=== PATIENT | female | born 1940 | race Caucasian/White ===

== ENCOUNTER 2020-03-16 15:56 | Inpatient (IN) ==
[2020-03-16] MEDS ORDERED: SODIUM CHLORIDE 0.9% 1,000 ML IV STA (16:41)
[2020-03-16] MEDS ORDERED: ONDANSETRON 4 MG/2 ML VIAL IV STA (16:41)
[2020-03-16 17:09] LABS: Basophils % 0.2 % (0.0-0.8); Eosinophils # 0.1 10*3/uL (0.0-0.87); Eosinophils % 0.5 % (0.00-10.9); Hematocrit 48.8 VOL% (35.7-47.0); Hemoglobin 16.5 GM/DL (12.0-16.0); Immature Granulocytes % 1.3 %; Immature Granulocytes Absolute 0.18 #; Lymphocytes # 1.4 10*3/uL (1.4-4.0); Lymphocytes % 10.4 % (21.3-54.2); Mean Corpuscular HGB Conc 33.8 GM/DL (32-36); Mean Corpuscular Volume 90.9 FL (87-102); Mean Platelet Volume 10.4 FL (9.6-12.0); Monocytes % 6.3 % (1.7-12.7); Neutrophils % 81.3 % (38.7-73.9); Platelet Count 159 T/CUMM (130-400); Red Blood Count 5.37 MC/CUMM (3.8-5.5); Red Cell Distribution Width 14.1 % (9.3-17.3); White Blood Count 13.6 T/CUMM (4-12)
[2020-03-16 17:32] LABS: Albumin 2.7 G/DL (3.4-5.0); Bilirubin,Total 0.6 MG/DL (0.2-1.0); Calcium 9.6 MG/DL (8.5-10.1); Osmolality,Calculated 287.5 MOS/KG (273-304); Total Protein 7.3 G/DL (6.4-8.3)
[2020-03-16 17:34] LABS: Bilirubin,Urine Negative (Negative); Blood, Urine Moderate mg/dL (Negative); Glucose,Urine (UA) Negative (Negative); Ketones,Urine Negative (Negative); Mucus,Urine Occasional /LPF (Occasional); Nitrite,Urine Negative (Negative); Protein,Urine 100 MG/DL; RBC,Urine 86 /HPF (0-4); Squamous Epithelial Cell,Urine Occasional /HPF (0-10); Urine Appearance CLOUDY (Clear); Urine Color Yellow (Yellow); Urine Urobilinogen < 2.0 EU/DL (0.2-1.0); WBC,Urine 1772 /HPF (0-6)
[2020-03-16] MEDS ORDERED: cefTRIAXone 1,000 MG in SODIUM CHLORIDE 0.9% 100 ML IV STA (18:16)
[2020-03-16] MEDS ORDERED: MORPHINE 4 MG/1 ML VIAL IV PRN (19:29)
[2020-03-16] MEDS ORDERED: DEXTROSE 50% 25 GM/50 ML VIAL IV PRN (19:29)
[2020-03-16] MEDS ORDERED: ONDANSETRON 4 MG/2 ML VIAL IV PRN (19:29)
[2020-03-16] MEDS ORDERED: GLUCAGON 1 MG VIAL IM PRN (19:29)
[2020-03-16] MEDS ORDERED: FLUCONAZOLE INJ 400 MG in PREMIX 1 EACH IV ONE (19:39)
[2020-03-16] MEDS: PIPERACILLIN/TAZOBACTAM 3,375 MG in SODIUM CHLORIDE 0.9% 100 ML IV SCH (21:00)
[2020-03-17] MEDS: SODIUM CHLOR 0.9% KCL 20 MEQ 20 MEQ/1,000 ML BAG IV SCH ×4 (03:25→18:51)
[2020-03-17] MEDS: ROSUVASTATIN 20 MG TABLET PO SCH ×2 (03:38→23:23)
[2020-03-17] MEDS: GABAPENTIN 300 MG CAPSULE PO SCH ×5 (03:38→20:23)
[2020-03-17 05:45] LABS: Basophils % 0.3 % (0.0-0.8); Eosinophils # 0.1 10*3/uL (0.0-0.87); Eosinophils % 1.3 % (0.00-10.9); Hematocrit 29.7 VOL% (35.7-47.0); Immature Granulocytes % 0.6 %; Immature Granulocytes Absolute 0.07 #; Lymphocytes # 1.7 10*3/uL (1.4-4.0); Lymphocytes % 15.3 % (21.3-54.2); Mean Corpuscular HGB Conc 33.7 GM/DL (32-36); Mean Corpuscular Volume 91.4 FL (87-102); Mean Platelet Volume 10.6 FL (9.6-12.0); Monocytes % 6.3 % (1.7-12.7); Neutrophils % 76.2 % (38.7-73.9); Platelet Count 151 T/CUMM (130-400); Red Blood Count 3.25 MC/CUMM (3.8-5.5); Red Cell Distribution Width 13.9 % (9.3-17.3)
[2020-03-17 06:07] LABS: Hypochromasia Slight; Microcytosis Slight; Ovalocytes Slight; Platelet Estimate Adequate
[2020-03-17 06:19] LABS: Osmolality,Calculated 293.7 MOS/KG (273-304); Risk Ratio 9.92; Thyroid Stimulating Hormone 8.9 uIU/ml (0.358-3.74)
[2020-03-17] MEDS: PIPERACILLIN/TAZOBACTAM 3,375 MG in SODIUM CHLORIDE 0.9% 100 ML IV SCH ×3 (06:30→23:23)
[2020-03-17] MEDS: LEVOTHYROXINE 100 MCG TABLET PO SCH (06:33)
[2020-03-17] MEDS: LOSARTAN 50 MG TABLET PO SCH (10:19)
[2020-03-17] MEDS: PANTOPRAZOLE 40 MG VIAL IV SCH (10:20)
[2020-03-17] MEDS: ENOXAPARIN 40 MG/0.4 ML SYRINGE SUBCUT SCH (10:22)
[2020-03-17] MEDS ORDERED: SKIN HEALING OINT (AQUAPHOR) 50 GM TUBE TOP SCH (14:30)
[2020-03-18] MEDS: ZINC OXIDE PASTE 113 GM TUBE TOP SCH ×3 (00:59→23:04)
[2020-03-18] MEDS: SODIUM CHLOR 0.9% KCL 20 MEQ 20 MEQ/1,000 ML BAG IV SCH ×4 (00:59→20:30)
[2020-03-18] MEDS: PIPERACILLIN/TAZOBACTAM 3,375 MG in SODIUM CHLORIDE 0.9% 100 ML IV SCH ×3 (06:43→23:04)
[2020-03-18 07:16] LABS: Basophils % 0.5 % (0.0-0.8); Eosinophils # 0.4 10*3/uL (0.0-0.87); Eosinophils % 4.4 % (0.00-10.9); Hematocrit 33.5 VOL% (35.7-47.0); Immature Granulocytes % 0.8 %; Immature Granulocytes Absolute 0.07 #; Lymphocytes # 2.3 10*3/uL (1.4-4.0); Lymphocytes % 27.4 % (21.3-54.2); Mean Corpuscular HGB Conc 32.8 GM/DL (32-36); Mean Corpuscular Volume 92.8 FL (87-102); Monocytes % 6.4 % (1.7-12.7); Neutrophils % 60.5 % (38.7-73.9); Platelet Count 166 T/CUMM (130-400); Red Blood Count 3.61 MC/CUMM (3.8-5.5); White Blood Count 8.5 T/CUMM (4-12)
[2020-03-18 07:20] LABS: Calcium 8.1 MG/DL (8.5-10.1); Osmolality,Calculated 285.3 MOS/KG (273-304)
[2020-03-18] MEDS: PANTOPRAZOLE 40 MG VIAL IV SCH (09:20)
[2020-03-18] MEDS: LOSARTAN 50 MG TABLET PO SCH (09:20)
[2020-03-18] MEDS: GABAPENTIN 300 MG CAPSULE PO SCH ×4 (09:20→20:30)
[2020-03-18] MEDS: LEVOTHYROXINE 100 MCG TABLET PO SCH (09:20)
[2020-03-18] MEDS: ENOXAPARIN 40 MG/0.4 ML SYRINGE SUBCUT SCH (09:21)
[2020-03-18] MEDS: ROSUVASTATIN 20 MG TABLET PO SCH (23:04)
[2020-03-19] MEDS: SODIUM CHLOR 0.9% KCL 20 MEQ 20 MEQ/1,000 ML BAG IV SCH ×3 (04:30→21:45)
[2020-03-19] MEDS: PIPERACILLIN/TAZOBACTAM 3,375 MG in SODIUM CHLORIDE 0.9% 100 ML IV SCH (05:38)
[2020-03-19 07:27] LABS: Basophils # 0.1 10*3/uL (0.0-0.2); Basophils % 0.6 % (0.0-0.8); Eosinophils # 0.4 10*3/uL (0.0-0.87); Eosinophils % 4.8 % (0.00-10.9); Hematocrit 33.4 VOL% (35.7-47.0); Hemoglobin 11.2 GM/DL (12.0-16.0); Immature Granulocytes % 1.8 %; Immature Granulocytes Absolute 0.15 #; Lymphocytes # 2.9 10*3/uL (1.4-4.0); Lymphocytes % 34.3 % (21.3-54.2); Mean Corpuscular HGB Conc 33.5 GM/DL (32-36); Mean Platelet Volume 10.3 FL (9.6-12.0); Monocytes % 7.9 % (1.7-12.7); Neutrophils % 50.6 % (38.7-73.9); Platelet Count 174 T/CUMM (130-400); Red Blood Count 3.63 MC/CUMM (3.8-5.5); Red Cell Distribution Width 13.8 % (9.3-17.3); White Blood Count 8.5 T/CUMM (4-12)
[2020-03-19 07:33] LABS: Calcium 7.3 MG/DL (8.5-10.1)
[2020-03-19] MEDS ORDERED: SUCRALFATE 1 GM/10 ML UDCUP PO ONE (08:31)
[2020-03-19] MEDS ORDERED: POTASSIUM CHLORIDE 20 MEQ TABLET PO ONE (08:32)
[2020-03-19] MEDS ORDERED: CIPROFLOXACIN 500 MG TABLET PO SCH (09:00)
[2020-03-19] MEDS: GABAPENTIN 300 MG CAPSULE PO SCH ×4 (10:07→21:45)
[2020-03-19] MEDS: PANTOPRAZOLE 40 MG VIAL IV SCH (10:08)
[2020-03-19] MEDS: ENOXAPARIN 40 MG/0.4 ML SYRINGE SUBCUT SCH (10:08)
[2020-03-19] MEDS: LOSARTAN 50 MG TABLET PO SCH (10:09)
[2020-03-19] MEDS: ZINC OXIDE PASTE 113 GM TUBE TOP SCH ×2 (10:09→22:06)
[2020-03-19] MEDS: LEVOTHYROXINE 100 MCG TABLET PO SCH (10:09)
[2020-03-19 10:54] LABS: Band Neutrophils 1 % (0-10); Eosinophils 5 % (0-10); Lymphocytes 26 % (20-55); Ovalocytes Few; Platelet Estimate Normal; Polychromasia Slight; Segmented Neutrophils 55 % (50-85); Total Cells Counted 100
[2020-03-19] MEDS: MEROPENEM 500 MG in SODIUM CHLORIDE 0.9% 100 ML IV SCH ×2 (16:52→22:06)
[2020-03-19] MEDS: ROSUVASTATIN 20 MG TABLET PO SCH (21:46)
[2020-03-20] MEDS: MEROPENEM 500 MG in SODIUM CHLORIDE 0.9% 100 ML IV SCH ×2 (04:12→09:14)
[2020-03-20 05:47] LABS: Basophils % 0.4 % (0.0-0.8); Eosinophils # 0.5 10*3/uL (0.0-0.87); Eosinophils % 5.2 % (0.00-10.9); Hematocrit 35.8 VOL% (35.7-47.0); Hemoglobin 11.7 GM/DL (12.0-16.0); Immature Granulocytes % 4.9 %; Immature Granulocytes Absolute 0.51 #; Lymphocytes # 3.5 10*3/uL (1.4-4.0); Mean Corpuscular HGB Conc 32.7 GM/DL (32-36); Mean Platelet Volume 10.3 FL (9.6-12.0); Monocytes % 8.3 % (1.7-12.7); Neutrophils % 47.2 % (38.7-73.9); Platelet Count 191 T/CUMM (130-400); Red Blood Count 3.81 MC/CUMM (3.8-5.5); Red Cell Distribution Width 13.6 % (9.3-17.3); White Blood Count 10.4 T/CUMM (4-12)
[2020-03-20] MEDS: SODIUM CHLOR 0.9% KCL 20 MEQ 20 MEQ/1,000 ML BAG IV SCH ×3 (05:56→22:03)
[2020-03-20 06:18] LABS: Atypical Lymphocytes Few; Eosinophils 8 % (0-10); Lymphocytes 33 % (20-55); Microcytosis Slight; Segmented Neutrophils 53 % (50-85); Total Cells Counted 100
[2020-03-20 06:19] LABS: Hypochromasia 1+; Platelet Estimate Adequate
[2020-03-20 06:20] LABS: Ovalocytes Slight
[2020-03-20 06:26] LABS: Osmolality,Calculated 276.4 MOS/KG (273-304)
[2020-03-20] MEDS: PANTOPRAZOLE 40 MG VIAL IV SCH (09:09)
[2020-03-20] MEDS: ENOXAPARIN 40 MG/0.4 ML SYRINGE SUBCUT SCH (09:09)
[2020-03-20] MEDS: GABAPENTIN 300 MG CAPSULE PO SCH ×4 (09:09→21:58)
[2020-03-20] MEDS: LOSARTAN 50 MG TABLET PO SCH (09:09)
[2020-03-20] MEDS: LEVOTHYROXINE 100 MCG TABLET PO SCH (09:09)
[2020-03-20] MEDS: ZINC OXIDE PASTE 113 GM TUBE TOP SCH ×2 (09:09→22:03)
[2020-03-20] MEDS: ERTAPENEM 1,000 MG in SODIUM CHLORIDE 0.9% 100 ML IV SCH (15:15)
[2020-03-20] MEDS: ROSUVASTATIN 20 MG TABLET PO SCH (21:59)
[2020-03-20] MEDS: CHLORHEXIDINE 0.12% ORAL RINSE 60 ML BOTTLE SWISH/SPIT SCH (21:59)
[2020-03-21 00:11] VITALS: BP 191/103
[2020-03-21] MEDS: SODIUM CHLOR 0.9% KCL 20 MEQ 20 MEQ/1,000 ML BAG IV SCH ×2 (06:21→14:55)
[2020-03-21] MEDS: ENOXAPARIN 40 MG/0.4 ML SYRINGE SUBCUT SCH ×2 (10:02→10:53)
[2020-03-21] MEDS: ZINC OXIDE PASTE 113 GM TUBE TOP SCH (10:53)
[2020-03-21] MEDS: LEVOTHYROXINE 100 MCG TABLET PO SCH (10:53)
[2020-03-21] MEDS: LOSARTAN 50 MG TABLET PO SCH (10:53)
[2020-03-21] MEDS: PANTOPRAZOLE 40 MG VIAL IV SCH (10:53)
[2020-03-21] MEDS: GABAPENTIN 300 MG CAPSULE PO SCH ×3 (10:53→16:20)
[2020-03-21] MEDS: CHLORHEXIDINE 0.12% ORAL RINSE 60 ML BOTTLE SWISH/SPIT SCH (10:54)
[2020-03-21] MEDS: ERTAPENEM 1,000 MG in SODIUM CHLORIDE 0.9% 100 ML IV SCH (14:54)
== END 2020-03-21 18:05 | disposition home health service (06) | DRG 690 ==
LOC: EDBD → N.ED 15:56 → N.EDINP 19:29 → N.TELES 20:47
PROVIDERS: ADMIT Internal Medicine; ATTEND Internal Medicine

== ENCOUNTER 2021-12-29 04:42 | Inpatient (IN) ==
[2021-12-29 05:13] LABS: Basophils # 0.1 10*3/uL (0.0-0.2); Basophils % 0.2 % (0.0-0.8); Eosinophils % 0.1 % (0.00-10.9); Hematocrit 41.7 VOL% (35.7-47.0); Hemoglobin 13.8 GM/DL (12.0-16.0); Immature Granulocytes % 2.2 %; Immature Granulocytes Absolute 0.54 #; Lymphocytes # 2.3 10*3/uL (1.4-4.0); Lymphocytes % 9.1 % (21.3-54.2); Mean Corpuscular HGB Conc 33.1 GM/DL (32-36); Mean Corpuscular Volume 90.5 FL (87-102); Mean Platelet Volume 10.4 FL (9.6-12.0); Monocytes # 0.7 10*3/uL (0.11-0.8); Monocytes % 2.7 % (1.7-12.7); Neutrophils % 85.7 % (38.7-73.9); Platelet Count 238 T/CUMM (130-400); Red Blood Count 4.61 MC/CUMM (3.8-5.5); Red Cell Distribution Width 14.6 % (9.3-17.3); White Blood Count 24.9 T/CUMM (4-12)
[2021-12-29 05:24] LABS: Bacteria,Urine Many /HPF (Few); Mucus,Urine Occasional /LPF (Occasional); RBC,Urine 1743 /HPF (0-4); Squamous Epithelial Cell,Urine Occasional /HPF (0-10)
[2021-12-29 05:25] LABS: Bilirubin,Urine Small mg/dL (Negative); Glucose,Urine (UA) Negative (Negative); Ketones,Urine 15 mg/dL (Negative); Nitrite,Urine Negative (Negative); Protein,Urine >=300 mg/dL (Negative); Urine Appearance Turbid (Clear); Urine Color Dark yellow (Yellow); Urine Specific Gravity 1.025 (1.001-1.035)
[2021-12-29 05:26] LABS: Blood, Urine Large mg/dL (Negative)
[2021-12-29 05:37] LABS: Band Neutrophils 1 % (0-10); Lymphocytes 4 % (20-55); Platelet Estimate Adequate; Total Cells Counted 100
[2021-12-29 05:45] LABS: Bacteria Wet Mount Moderate /HPF; Clue Cells None Seen /HPF (None Seen); Epithelial Cell Wet Mount Few /HPF (Few/HPF); RBC Wet Mount Moderate /HPF; Trichomonas Wet Mount None Seen /HPF (None Seen); WBC Wet Mount Moderate /HPF; Yeast Wet Mount None Seen /HPF (None Seen)
[2021-12-29] MEDS ORDERED: cefTRIAXone 1,000 MG in SODIUM CHLORIDE 0.9% 100 ML IV STA (05:48)
[2021-12-29] MEDS ORDERED: SODIUM CHLORIDE 0.9% 1,000 ML IV STA (06:14)
[2021-12-29 06:56] LABS: Albumin 2.3 G/DL (3.4-5.0); Bilirubin,Total 1.4 MG/DL (0.20-1.00); Calcium 8.8 MG/DL (8.5-10.1); Osmolality,Calculated 295.8 MOS/KG (273-304); Potassium 3.7 MMOL/L (3.5-5.1); Total Protein 6.3 G/DL (6.4-8.2)
[2021-12-29] MEDS ORDERED: SODIUM CHLORIDE 0.9% 2,550 ML IV ONE (07:46)
[2021-12-29] MEDS ORDERED: ACETAMINOPHEN 325 MG TABLET PO PRN (07:52)
[2021-12-29] MEDS ORDERED: GLUCAGON 1 MG VIAL IM PRN (07:52)
[2021-12-29] MEDS ORDERED: DEXTROSE 10% 250 ML BAG IV PRN (07:52)
[2021-12-29] MEDS ORDERED: ALBUTEROL 2.5 MG/3 ML NEB RESP TX PRN (07:52)
[2021-12-29] MEDS ORDERED: ONDANSETRON 4 MG/2 ML VIAL IV PRN (07:52)
[2021-12-29] MEDS: LACTATED RINGERS 1,000 ML IV SCH ×2 (12:12→21:00)
[2021-12-29] MEDS: hydrALAZINE 20 MG/1 ML VIAL IV PRN (13:08)
[2021-12-29] MEDS: PANTOPRAZOLE 40 MG TABLET PO SCH (13:09)
[2021-12-29] MEDS: PIPERACILLIN/TAZOBACTAM 3,375 MG in SODIUM CHLORIDE 0.9% 100 ML IV SCH ×2 (13:09→22:33)
[2021-12-29] MEDS ORDERED: ACETAMINOPHEN 650 MG SUPP RECTAL PRN (13:12)
[2021-12-29] MEDS ORDERED: VANCOMYCIN INJ 1,250 MG in SODIUM CHLORIDE 0.9% 250 ML IV SCH (17:00)
[2021-12-29] MEDS: ENOXAPARIN 40 MG/0.4 ML SYRINGE SUBCUT SCH (22:37)
[2021-12-30] MEDS: PIPERACILLIN/TAZOBACTAM 3,375 MG in SODIUM CHLORIDE 0.9% 100 ML IV SCH ×3 (05:55→21:02)
[2021-12-30 06:59] LABS: Calcium 7.8 MG/DL (8.5-10.1); Osmolality,Calculated 298.7 MOS/KG (273-304); Potassium 3.3 MMOL/L (3.5-5.1); Risk Ratio 11.14; Thyroid Stimulating Hormone 7.23 uIU/ml (0.358-3.74); VLDL Cholesterol 40.2 MG/DL
[2021-12-30 07:32] LABS: Basophils % 0.2 % (0.0-0.8); Eosinophils % 0.1 % (0.00-10.9); Hematocrit 35.3 VOL% (35.7-47.0); Hemoglobin 11.7 GM/DL (12.0-16.0); Immature Granulocytes % 1.4 %; Immature Granulocytes Absolute 0.23 #; Lymphocytes % 11.8 % (21.3-54.2); Mean Corpuscular HGB Conc 33.1 GM/DL (32-36); Mean Corpuscular Volume 89.8 FL (87-102); Mean Platelet Volume 10.9 FL (9.6-12.0); Monocytes # 0.5 10*3/uL (0.11-0.8); Monocytes % 2.6 % (1.7-12.7); Neutrophils % 83.9 % (38.7-73.9); Platelet Count 183 T/CUMM (130-400); Red Blood Count 3.93 MC/CUMM (3.8-5.5); Red Cell Distribution Width 14.6 % (9.3-17.3)
[2021-12-30] MEDS: PANTOPRAZOLE 40 MG TABLET PO SCH (08:33)
[2021-12-30] MEDS: LOSARTAN 50 MG TABLET PO SCH (08:34)
[2021-12-30] MEDS ORDERED: LEVOTHYROXINE 100 MCG TABLET PO SCH (09:00)
[2021-12-30] MEDS: LACTATED RINGERS 1,000 ML IV SCH (09:40)
[2021-12-30] MEDS ORDERED: POTASSIUM CHLORIDE 20 MEQ TABLET PO ONE (11:42)
[2021-12-30] MEDS: FUROSEMIDE 40 MG/4 ML VIAL IV SCH ×2 (19:26→19:30)
[2021-12-30] MEDS: ENOXAPARIN 40 MG/0.4 ML SYRINGE SUBCUT SCH (21:02)
[2021-12-31] MEDS: hydrALAZINE 20 MG/1 ML VIAL IV PRN (01:56)
[2021-12-31] MEDS: LACTATED RINGERS 1,000 ML IV SCH (05:37)
[2021-12-31] MEDS: PIPERACILLIN/TAZOBACTAM 3,375 MG in SODIUM CHLORIDE 0.9% 100 ML IV SCH (05:39)
[2021-12-31 06:19] LABS: Basophils % 0.2 % (0.0-0.8); Eosinophils % 0.3 % (0.00-10.9); Hematocrit 33.1 VOL% (35.7-47.0); Hemoglobin 10.9 GM/DL (12.0-16.0); Immature Granulocytes % 0.6 %; Immature Granulocytes Absolute 0.09 #; Lymphocytes # 2.1 10*3/uL (1.4-4.0); Lymphocytes % 14.7 % (21.3-54.2); Mean Corpuscular HGB Conc 32.9 GM/DL (32-36); Mean Corpuscular Volume 90.2 FL (87-102); Monocytes # 0.6 10*3/uL (0.11-0.8); Monocytes % 4.2 % (1.7-12.7); Platelet Count 182 T/CUMM (130-400); Red Blood Count 3.67 MC/CUMM (3.8-5.5); Red Cell Distribution Width 14.6 % (9.3-17.3); White Blood Count 14.4 T/CUMM (4-12)
[2021-12-31 06:37] LABS: Calcium 7.9 MG/DL (8.5-10.1); Osmolality,Calculated 300.4 MOS/KG (273-304); Potassium 3.3 MMOL/L (3.5-5.1)
[2021-12-31 06:44] LABS: Lymphocytes 13 % (20-55); Platelet Estimate Adequate; Total Cells Counted 100
[2021-12-31] MEDS: FUROSEMIDE 40 MG/4 ML VIAL IV SCH ×2 (12:29→16:20)
[2021-12-31] MEDS: MEROPENEM 500 MG in SODIUM CHLORIDE 0.9% 100 ML IV SCH ×2 (12:38→20:57)
[2021-12-31] MEDS: LEVOTHYROXINE 112 MCG TABLET PO SCH (12:38)
[2021-12-31] MEDS: LOSARTAN 50 MG TABLET PO SCH (12:38)
[2021-12-31] MEDS: PANTOPRAZOLE 40 MG TABLET PO SCH (12:38)
[2021-12-31] MEDS ORDERED: MENTHOL/ZINC OXIDE OINT 71 GM JAR TOP PRN (15:06)
[2021-12-31] MEDS: ENOXAPARIN 40 MG/0.4 ML SYRINGE SUBCUT SCH (20:56)
[2022-01-01] MEDS: MEROPENEM 500 MG in SODIUM CHLORIDE 0.9% 100 ML IV SCH ×4 (03:35→21:41)
[2022-01-01] MEDS: LACTATED RINGERS 1,000 ML IV SCH ×2 (03:36→21:42)
[2022-01-01 06:02] LABS: Basophils % 0.3 % (0.0-0.8); Eosinophils # 0.2 10*3/uL (0.0-0.87); Eosinophils % 1.5 % (0.00-10.9); Hematocrit 35.1 VOL% (35.7-47.0); Hemoglobin 11.2 GM/DL (12.0-16.0); Immature Granulocytes % 1.3 %; Immature Granulocytes Absolute 0.13 #; Lymphocytes # 2.5 10*3/uL (1.4-4.0); Lymphocytes % 24.2 % (21.3-54.2); Mean Corpuscular HGB Conc 31.9 GM/DL (32-36); Mean Corpuscular Volume 92.1 FL (87-102); Mean Platelet Volume 10.9 FL (9.6-12.0); Monocytes # 0.6 10*3/uL (0.11-0.8); Monocytes % 6.3 % (1.7-12.7); Neutrophils % 66.4 % (38.7-73.9); Platelet Count 190 T/CUMM (130-400); Red Blood Count 3.81 MC/CUMM (3.8-5.5); Red Cell Distribution Width 14.6 % (9.3-17.3); White Blood Count 10.2 T/CUMM (4-12)
[2022-01-01 06:21] LABS: Calcium 8.3 MG/DL (8.5-10.1); Osmolality,Calculated 293.8 MOS/KG (273-304); Potassium 3.2 MMOL/L (3.5-5.1)
[2022-01-01] MEDS: PANTOPRAZOLE 40 MG TABLET PO SCH (10:44)
[2022-01-01] MEDS: LOSARTAN 50 MG TABLET PO SCH (10:44)
[2022-01-01] MEDS: LEVOTHYROXINE 112 MCG TABLET PO SCH (10:44)
[2022-01-01] MEDS: ENOXAPARIN 40 MG/0.4 ML SYRINGE SUBCUT SCH (21:43)
[2022-01-02] MEDS: MEROPENEM 500 MG in SODIUM CHLORIDE 0.9% 100 ML IV SCH ×2 (03:15→08:41)
[2022-01-02] MEDS: hydrALAZINE 20 MG/1 ML VIAL IV PRN (03:52)
[2022-01-02 07:02] LABS: Basophils % 0.2 % (0.0-0.8); Eosinophils # 0.2 10*3/uL (0.0-0.87); Eosinophils % 1.9 % (0.00-10.9); Hematocrit 40.9 VOL% (35.7-47.0); Hemoglobin 12.5 GM/DL (12.0-16.0); Immature Granulocytes % 5.8 %; Immature Granulocytes Absolute 0.57 #; Lymphocytes # 3.7 10*3/uL (1.4-4.0); Lymphocytes % 37.6 % (21.3-54.2); Mean Corpuscular HGB Conc 30.6 GM/DL (32-36); Mean Corpuscular Volume 95.3 FL (87-102); Mean Platelet Volume 11.1 FL (9.6-12.0); Monocytes # 0.7 10*3/uL (0.11-0.8); Monocytes % 6.9 % (1.7-12.7); Neutrophils % 47.6 % (38.7-73.9); Platelet Count 244 T/CUMM (130-400); Red Blood Count 4.29 MC/CUMM (3.8-5.5); Red Cell Distribution Width 14.3 % (9.3-17.3); White Blood Count 9.8 T/CUMM (4-12)
[2022-01-02 07:09] LABS: Band Neutrophils 1 % (0-10); Hypochromia 1+; Lymphocytes 42 % (20-55); Microcytosis Slight; Myelocytes 1 %; Total Cells Counted 100
[2022-01-02 07:10] LABS: Platelet Estimate Normal
[2022-01-02 07:15] LABS: Osmolality,Calculated 284.3 MOS/KG (273-304); Potassium 3.4 MMOL/L (3.5-5.1)
[2022-01-02] MEDS: LEVOTHYROXINE 112 MCG TABLET PO SCH (08:41)
[2022-01-02] MEDS: LOSARTAN 50 MG TABLET PO SCH (08:41)
[2022-01-02] MEDS: PANTOPRAZOLE 40 MG TABLET PO SCH (08:41)
[2022-01-02 13:58] VITALS: BP 174/107
== END 2022-01-02 17:18 | disposition home or self-care (01) | DRG 871 ==
LOC: EDUNIT# → EDBD → N.ED 04:42 → N.EDINP 07:52 → SUATTDRO 07:52 → N.EDINP 11:33 → N.5E 12:15
PROVIDERS: ADMIT Family Medicine; ATTEND Emergency Medicine